=== PATIENT | female | born 1995 | race Two or more races ===

== ENCOUNTER 2022-11-17 13:44 | Emergency (ER) | payer MEDICAID, OTHER ==
[~2022-11-17] VITALS: Ht 157.5 cm; Wt 72.3 kg
[2022-11-17 14:22] LABS: Basophils # (auto) 0 10 ^3/uL (0-0.2); Basophils % (auto) 0.5 % (0.0-2.0); Eosinophils # (auto) 0.2 10 ^3/uL (0-0.8); Eosinophils % (auto) 2.4 % (0.0-7.0); Hematocrit 36.4 % (36.0-46.0); Hemoglobin 12.3 g/dL (12.2-16.2); Lymphocytes # (auto) 1.9 10 ^3/uL (0.4-5.4); Mean Corpuscular Hemoglobin 29.5 pg (28.0-32.0); Mean Corpuscular Hgb Conc. 33.7 g/dL (32.0-36.0); Mean Corpuscular Volume 87.8 fL (80.0-100.0); Monocytes # (auto) 0.5 10 ^3/uL (0-1.3); Monocytes % (auto) 8.3 % (0.0-12.0); Neutrophils # (auto) 3.6 10 ^3/uL (1.6-8.6); Neutrophils % (auto) 57.8 % (37.0-80.0); Nucleated Red Blood Cells % 0.1 %; Red Blood Cells 4.15 10^6/uL (4.0-5.20); Red Cell Distribution Width 13.6 % (11.8-14.3); White Blood Cell 6.3 10^3/uL (4.4-10.8)
[2022-11-17 14:44] LABS: Potassium 3.6 mmol/L (3.5-5.1)
[2022-11-17 14:50] LABS: BUN/Creatinine Ratio 16.9 (10.0-20.0); Bilirubin, Total 0.4 mg/dL (0.2-1.0); Calcium 8.4 mg/dL (8.5-10.1); Total Protein 7.5 g/dL (6.4-8.2)
[2022-11-17 15:00] LABS: Urine Bacteria FEW /hpf (None Seen); Urine Blood Negative /uL (Negative); Urine Specific Gravity 1.003 (1.001-1.035); Urine WBC 17 /hpf (0 - 5)
[2022-11-17 15:10] LABS: CRP High Sensitivity 0.12 mg/dL (< 0.3)
[2022-11-17] MEDS ORDERED: cefTRIAXone 1GM/50ML D5W 50 ML IV ONE (16:15)
[2022-11-17] MEDS ORDERED: KETOROLAC TROMETH 30 MG/ML 1ML VIAL IV ONE (16:45)
[2022-11-17] MEDS ORDERED: HYDROcodone-ACET 5/325MG TAB PO ONE (18:30)
[2022-11-17] MEDS ORDERED: HYDR-4902 PO (18:59)
[2022-11-17] MEDS ORDERED: DOXY1CAP57 PO (18:59)
[2022-11-17 22:27] VITALS: BP 98/68
== END 2022-11-17 22:31 | disposition home or self-care (01) ==
LOC: ER 13:44
DX: N39.0 Urinary tract infection, site not specified (principal); R10.2 Pelvic and perineal pain; Z98.51 Tubal ligation status; Z88.1 Allergy status to other antibiotic agents
CPT/HCPCS: 36415; 74176; 76830; 76856; 80053; 81001; 83605; 83690; 84702; 85025; 86141; 96365; 96375; 99285; J0696; J1885

== ENCOUNTER 2025-06-18 22:27 | Emergency (ER) | payer MEDICAID ==
[~2025-06-18] VITALS: Ht 165.1 cm; Wt 73.1 kg
[~2025-06-18 22:27] MED LIST: DOXY1CAP57 PO; HYDR-4902 PO
[2025-06-18] MEDS: HYDROcodone-ACET 10/325MG TAB PO ONE (23:30)
[2025-06-18] MEDS: ONDANSETRON ODT 4 MG TAB PO ONE (23:30)
[2025-06-18 23:43] LABS: Hematocrit 34.5 % (36.0-46.0); Hemoglobin 11.9 g/dL (12.2-16.2); Mean Corpuscular Hemoglobin 31.1 pg (28.0-32.0); Mean Corpuscular Volume 90.6 fL (80.0-100.0); Nucleated Red Blood Cells % 0.0 %
[2025-06-18 23:54] LABS: Alanine Aminotransferase 20 U/L (7-40); Albumin 4.2 g/dL (3.2-4.8); Alkaline Phosphatase 82 U/L (46-116); Anion Gap 8 (5-15); BUN/Creatinine Ratio 10.3 (10.0-20.0); Calcium 9.0 mg/dL (8.7-10.4); Carbon Dioxide 26 mmol/L (20-31); Chloride 107 mmol/L (98-107); Lipase 45 U/L (12-53); Potassium 3.9 mmol/L (3.5-5.1); Sodium 141 mmol/L (136-145); Total Protein 7.0 g/dL (5.7-8.2)
[2025-06-18 23:55] LABS: Bilirubin, Total 0.4 mg/dL (0.2-1.0)
[2025-06-19 00:06] LABS: Blood Urea Nitrogen 8 mg/dL (9-23); Glucose 118 mg/dL (74-106)
--- NOTE | 2025-06-19 00:20 | ED.PDOC ---
History of Present Illness HPI Comments 29 y/o [place]an-speaking F presents with relative for c/c of right flank pain. Patient endorses on 4x day history of, progressively, worsening pain, that radiates to her RLQ region, following initial, unprovoked and atraumatic onset. Patient also complains of suprapubic and vaginal pain x2 months. No reported recent notable events or lifestyle changes. Patient denies any medical or surgical history and takes no medications, currently. No associated nausea, vomiting, diarrhea, urinary problems, or further acute symptoms. Chief Complaint: Flank Pain Time Seen by MD: 22:50 Primary Care Provider: JERAD Reviewed Notes: Nurses Notes, Medications, Allergies Allergies: Coded Allergies: No Known Drug Allergy (Verified Allergy, Unknown, 11/17/22) Home Meds Active Scripts Gabapentin (Once-Daily) (Gabapentin) 300 Mg Tab, 300 MG PO Q6HP PRN, #60 TAB Prov:NATHANAEL SPRING MD 06/19/25 Hydrocodone-Acetaminophen (Hydrocodone Bitartrate/AC 5-325 mg) 1 Tab Tab, 1 TAB PO [id number] PRN for 5 Days, #10 TAB Prov:NBA JAMES DO 11/17/22 Doxycycline Monohydrate (Doxycycline Monohydrate) 100 Mg Cap, 1 CAP PO BID for 7 Days, #14 CAP Prov:NBA JAMES DO 11/17/22 Information Source: Patient Mode of Arrival: Ambulatory Severity: Moderate Timing: Days Duration: Since onset Prehospital treatment: None Past Medical History PAST MEDICAL HISTORY: Denies Surgical History: Hernia Repair, Tubal Ligation [employer] History: Ovarian Cysts Family History Family History: Reviewed,noncontributory to illness Social History Smoker: Non-Smoker Alcohol: Denies ETOH Use Drugs: Denies Drug Use Lives In: Home All Other Systems: Reviewed and Negative (As per HPI) Physical Exam General Appearance: No Apparent Distress, Normal HEENT: Normal ENT Inspection, Pharynx Normal, TMs Normal Neck: Full Range of Motion, Non-Tender, Normal, Normal Inspection Respiratory: Chest Non-Tender, Lungs Clear, No Accessory Muscle Use, No Respiratory Distress, Normal Breath Sounds Cardiovascular: No Edema, No JVD, No Murmur, No Gallop, Normal Peripheral Pulses, Regular Rate/Rhythm Breast Exam: Deferred Gastrointestinal: No Organomegaly, Non Tender, No Pulsatile Mass, Normal Bowel Sounds, Soft Genitalia: Deferred Pelvic: Deferred Rectal: Deferred Extremities: No calf tenderness, Normal capillary refill, Normal inspection, Normal range of motion, Non-tender, No pedal edema Musculoskeletal : Apperance: Normal Neurologic: Alert, broacher II-XII nml as Tested, No Motor Deficits, Normal Affect, Normal Mood, No Sensory Deficits Cerebellar Function: Normal Reflexes: Normal Skin: Dry, Normal Color, Warm Lymphatic: No Adenopathy Was a procedure done? Was a procedure done?: No Differential Dx Considerations may include: Ovarian cysts, ovarian torsion, PID, ectopic , nephrolithiasis, pyelonephritis, cystitis, ureteral stones, ureteral obstruction, musculoskeletal pain, appendicitis, cholelithiasis, cholecystitis, diverticulitis, among others X-Ray, Labs, Meds, VS Vital Signs Date Time Temp Pulse Resp B/P (MAP) Pulse Ox O2 Delivery O2 Flow Rate FiO2 06/19/25 01:46 98.5 63 14 125/77 (93) 100 98.5 06/18/25 22:39 97.7 69 20 122/79 98 97.7 Lab Test 06/19/25 01:40 06/18/25 23:27 Range/Units Urine Color Light-yellow Yellow Urine Clarity Clear Clear Urine pH 6.5 5.0-9.0 Urine Specific Gary 1.024 1.001-1.035 Urine Protein Negative Negative Urine Ketones Negative Negative Urine Blood Negative Negative /uL Urine Nitrite Negative Negative Urine Bilirubin Negative Negative Urine Urobilinogen Normal Negative mg/dL Urine Leukocyte Esterase Negative Negative /uL Urine RBC 1 0 - 4 /hpf Urine Microscopic WBC 2 0-5 /HPF Urine Squamous Epithelial Cells Few <5 /hpf Urine Bacteria None seen None Seen /hpf Urine Mucus Few None Seen Urine Glucose Normal Normal mg/dL Urine Test Negative Negative White Blood Count 6.2 4.4-10.8 10^3/uL Red Blood Count 3.81 L 4.0-5.20 10^6/uL Hemoglobin 11.9 L 12.2-16.2 g/dL Hematocrit 34.5 L 36.0-46.0 % Mean Corpuscular Volume 90.6 80.0-100.0 fL Mean Corpuscular Hemoglobin 31.1 28.0-32.0 pg Mean Corpuscular Hemoglobin Concent 34.4 32.0-36.0 g/dL Red Cell Distribution Width 14.0 11.8-14.3 % Platelet Count 283 140-450 10^3/uL Mean Platelet Volume 6.9 6.9-10.8 fL Neutrophils (%) (Auto) 45.1 37.0-80.0 % Lymphocytes (%) (Auto) 43.8 10.0-50.0 % Monocytes (%) (Auto) 7.4 0.0-12.0 % Eosinophils (%) (Auto) 3.1 0.0-7.0 % Basophils (%) (Auto) 0.6 0.0-2.0 % Neutrophils # (Auto) 2.8 1.6-8.6 10 ^3/uL Lymphocytes # (Auto) 2.7 0.4-5.4 10 ^3/uL Monocytes # (Auto) 0.5 0-1.3 10 ^3/uL Eosinophils # (Auto) 0.2 0-0.8 10 ^3/uL Basophils # (Auto) 0 0-0.2 10 ^3/uL Nucleated Red Blood Cells 0.0 % Sodium Level 141 136-145 mmol/L Potassium Level 3.9 3.5-5.1 mmol/L Chloride Level 107 98-107 mmol/L Carbon Dioxide Level 26 20-31 mmol/L Anion Gap 8 5-15 Blood Urea Nitrogen 8 L 9-23 mg/dL Creatinine 0.78 0.550-1.02 mg/dL Glomerular Filtration Rate Calc 104 >90 mL/min BUN/Creatinine Ratio 10.3 10.0-20.0 Serum Glucose 118 H 74-106 mg/dL Calcium Level 9.0 8.7-10.4 mg/dL Total Bilirubin 0.4 0.2-1.0 mg/dL Aspartate Amino Transferase (AST) 18 13-40 U/L Alanine Aminotransferase (ALT) 20 7-40 U/L Alkaline Phosphatase 82 46-116 U/L Total Protein 7.0 5.7-8.2 g/dL Albumin 4.2 3.2-4.8 g/dL Lipase 45 12-53 U/L Current Medications Medications (Trade) Dose Ordered Sig/Tiara Route Start Time Stop Time Status Last Admin Acetaminophen/ Hydrocodone Bitart (Becker 10/325MG Tab) 1 tab ONCE ONCE PO 06/18/25 23:30 06/18/25 23:31 DC 06/18/25 23:30 Ondansetron HCl (Zofran Po) 4 mg ONCE ONCE PO 06/18/25 23:30 06/18/25 23:31 DC 06/18/25 23:30 Time of 1ST Reevaluation: 23:50 Reevaluation 1ST: Unchanged Patient Education/Counseling: Diagnosis, Treatment, Need For Follow Up Family Education/Counseling: Diagnosis, Treatment, Need For Follow Up SEPSIS Sepsis Screen Date sepsis recognized/suspect: Jun 18, 2025 Time Sepsis recognized/suspect: 2238 Recent Procedure: No On Antibiotic Therapy: No Respiratory Rate >20: No Heart Rate >90: No Temp<36 C (96.8 F) or >38.3 C: No SBP <90 or MAP <65 mmHG: No New Acute Mental Status Change: No Is the patient on CPAP, BIPAP,: No Physician Orders Ct Ab Pel Wo Con-No Oral Or Iv (06/18/25 22:59) Vital Signs Date Time Temp Pulse Resp B/P (MAP) Pulse Ox O2 Delivery O2 Flow Rate FiO2 06/19/25 01:46 98.5 63 14 125/77 (93) 100 98.5 06/18/25 22:39 97.7 69 20 122/79 98 97.7 Laboratory Tests Test 06/18/25 23:27 White Blood Count 6.2 10^3/uL (4.4-10.8) Medications Medications Dose Ordered Sig/Tiara Route Start Time Stop Time Status Last Admin Dose Admin Acetaminophen/ Hydrocodone Bitart 1 tab ONCE ONCE PO 06/18/25 23:30 06/18/25 23:31 DC 06/18/25 23:30 Ondansetron HCl 4 mg ONCE ONCE PO 06/18/25 23:30 06/18/25 23:31 DC 06/18/25 23:30 Departure 1 Departure Time of Disposition: 01:30 Impression: Primary Impression: Right flank pain Disposition: 01 HOME / SELF CARE / HOMELESS Condition: Stable e-Prescriptions Gabapentin (Once-Daily) (Gabapentin) 300 Mg Tab 300 MG PO Q6HP PRN, #60 TAB Prov: NATHANAEL SPRING MD 06/19/25 Discharged With: Relative Critical Care Note Critical Care Time?: No Stability Stability form required: No Heart Score Heart Score: Heart Score Response (Comments) Value History N/A 0 EKG N/A 0 Age N/A 0 Risk Factors N/A 0 Troponin N/A 0 Total 0 I personally scribed for NATHANAEL SPRING MD ([email or web address]) on 06/19/25 at 00:20. Electronically submitted by Jacky Santos [email or web address]). NATHANAEL SPRING MD Jun 19, 2025 00:20
[2025-06-19 01:46] VITALS: BP 125/77; PULSE 63; RESP 14; TEMP 98.5; O2SAT 100
--- NOTE | 2025-06-19 01:54 | DVH ---
EXAM: CT CT AB PEL WO CON-NO ORAL OR IV History: flank pain Comparison Study: CT CT AB PEL WO CON-NO ORAL OR IV on DOS: 11/17/22 TECHNIQUE: Multidetector spiral CT of the abdomen was performed from lung bases to pubic symphysis. Imaging was performed without IV contrast. Axial, coronal and sagittal multiplanar reformats were obtained from the axial data set by the technologist. Radiation Dose : 1. Abdomen/Pelvis: CTDIvol 6.59 mGy, DLP 354.32 mGy*cm FINDINGS: Evaluation of solid organs is limited due to lack of intravenous contrast use. Lung Bases: No acute or significant lung base finding. Normal heart size. No pleural or pericardial effusion. Liver: The liver is normal in size. No focal lesions. Gallbladder and Biliary Tree: Unremarkable Spleen: Unremarkable Pancreas: The pancreas is grossly normal in appearance. Adrenal Glands: Unremarkable Kidneys: Kidneys are grossly normal without calculi or hydronephrosis. Bladder: Grossly unremarkable for degree of distention. Bowel: The stomach is grossly normal in appearance. Small bowel and colon are normal in caliber and distribution. The appendix is not visualized; however, no secondary findings of acute appendicitis identified. Ascites: Absent Lymphadenopathy: No mesenteric, retroperitoneal or periportal lymphadenopathy. Abdominal Wall and Mesentery: Unremarkable. Vasculature: The visualized abdominal aorta is normal in size and caliber. Evaluation of abdominal and pelvic vessels is limited due to lack of intravenous contrast. Pelvic Organs: Unremarkable Musculoskeletal: No aggressive focal bony lesions, acute fractures or dislocation. IMPRESSION: No acute abdominal or pelvic findings. Radiation optimization: All CT scans at this facility use at least one of these dose optimization techniques: automated exposure control mA and/or kV adjustment per patient size (includes targeted exams where dose is matched to clinical indication) or iterative reconstruction.
[2025-06-19] MEDS ORDERED: GABA300T4 PO (02:18)
[2025-06-19 02:29] LABS: Urine Protein, UAD Negative (Negative)
== END 2025-06-19 02:20 | disposition home or self-care (01) ==
LOC: ER 22:27
DX: R10.A1 Flank pain, right side (principal); Z79.899 Other long term (current) drug therapy; Z98.890 Other specified postprocedural states; Z98.51 Tubal ligation status
CPT/HCPCS: 36415; 74176; 80053; 81001; 81025; 83690; 85025; 99284; Q0162